=== PATIENT | male | born 1945 | race Caucasian/White ===

== ENCOUNTER 2017-02-17 16:43 | Inpatient (IN) ==
--- NOTE | 2017-02-17 18:01 | Diag Imaging Result Doc PS360 ---
EXAM: LOWER LEG-RIGHT HISTORY: fall TECHNIQUE: Right lower leg four views COMMENT: There is a somewhat comminuted fracture of the proximal fibular shaft with lateral and anterior displacement of the distal fragment, also there is a spiral fracture of the distal tibia the distal fragment of which is displaced slightly laterally. IMPRESSION: Fractures of the tibia and fibula as described. Electronically signed by Hi Sage 02/17/2017 5:58 PM
[2017-02-17] MEDS ORDERED: MORPHINE IM ONE (18:11)
[2017-02-17] MEDS ORDERED: ZOFRAN IM ONE (18:11)
[2017-02-17] MEDS ORDERED: ZOFRAN IV ONE (18:27)
[2017-02-17] MEDS ORDERED: MORPHINE IV ONE ×2 (18:27→19:35)
--- NOTE | 2017-02-17 18:42 | Diag Imaging Result Doc PS360 ---
EXAM: CHEST-PORTABLE HISTORY: preop TECHNIQUE: AP portable upright at 1830 COMMENT: There are sternotomy wires. The heart size and pulmonary vascularity are within normal limits. There are no previous studies. There is apparent atelectasis versus fibrosis in the left costophrenic sulcus. IMPRESSION: Questionable left lower lobe atelectasis. Electronically signed by Hi Sage 02/17/2017 6:39 PM
[2017-02-17 19:30] LABS: MANUAL DIFF NEEDED? NO
[2017-02-17 19:33] LABS: BASO% 0.2 % (0.0-0.8); EOS# 0.18 X1000 (0.0-0.7); EOS% 1.8 % (0.0-10.0); HEMATOCRIT 38.2 % (42.0-52.0); HEMOGLOBIN 13.1 g/dL (14.0-18.0); IMM GRAN# 0.02 X1000 (0.0-0.04); IMM GRAN% 0.2 % (0.0-0.5); LYMPH# 1.63 X1000 (1.2-3.4); LYMPH% 16.1 % (20.5-51.1); MCH 29.8 PG (27-31); MCHC 34.3 g/dL (33-37); MONO% 8.9 % (1.7-9.3); MPV 11.4 FL (7.4-10.4); NEUT% 72.8 % (42.2-75.2); PLT 178 X1000 (130-400); RBC 4.39 XMIL (4.7-6.1)
[2017-02-17 19:42] LABS: INR 0.99; PROTIME 10.4 Seconds (9.2-11.7); PTT 23.2 Seconds (22.0-36.0)
[2017-02-17] MEDS ORDERED: DILAUDID IV ONE (19:53)
[2017-02-17 20:20] LABS: AGAP 15; ALBUMIN 4.8 g/dL (3.5-5.0); ALKALINE PHOSPHATASE 71 U/L (32-122); BUN 23 mg/dL (8-22); CALCIUM 9.5 mg/dL (8.8-10.2); CHLORIDE 98 mmol/L (98-107); COSMO 284; GOT 20 U/L (10-34); GPT 15 U/L (10-44); POTASSIUM 4.6 mmol/L (3.5-5.1); SODIUM 139 mmol/L (136-145); TCO2 26 mmol/L (25-35); TOTAL PROTEIN 7.1 g/dL (6.3-8.3)
[2017-02-17 20:25] LABS: URINE CULTURE NEEDED? NO; URINE MICRO REVIEW NEEDED? NO; URINE SOURCE CLEAN CATCH
[2017-02-17 20:31] LABS: BILIRUBIN URINE NEGATIVE (NEGATIVE); BLOOD URINE NEGATIVE (NEGATIVE); COLOR YELLOW; GLUCOSE URINE NEGATIVE (NEGATIVE); LEUKOCYTES URINE NEGATIVE (NEGATIVE); NITRITE URINE NEGATIVE (NEGATIVE); PH URINE 5.5; PROTEIN URINE TRACE mg/dL (NEGATIVE); SP GRAVITY URINE 1.017; TURBIDITY URINE CLEAR (CLEAR); UROBILINOGEN URINE NORMAL (NORMAL)
[2017-02-17 20:33] LABS: UR EPITHELIAL CELLS <10 /HPF (<10); URINE BACTERIA NEGATIVE /HPF; URINE RBC <10 /HPF (<10); URINE WBC <10 /HPF (<10)
--- NOTE | 2017-02-17 21:21 | PROVIDER DOCUMENTATION ---
This chart was entered by Ashley Perez Scribe, acting as scribe for Kraig Portillo PA. HPI-Musculoskeletal Pain/Inj - GENERAL Chief Complaint: Extremity Injury Stated Complaint: FALL Time Seen by Provider: 02/17/17 17:51 Source: patient - HX OF PRESENT ILLNESS-MUSKULOSKELTAL Nature of Presenting Problem: 71 yo M presents to the ER with complaint of fall 2ft off of a ladder, complaining of R ankle pain. Denies hitting his head of any LOC. He denies heck pain, back pain, hip pain, chest pain. Quality of Pain: reports: aching Severity in ED: moderate Onset/Duration: just prior to arrival Timing: still present Modifying Factors: improves with: movement Any recent injury?: Yes Locality of Occurance: Home Similar Symptoms Previously?: No Recently seen or treated by another doctor?: No - FALL INJURY Location of Pain/Injury: reports: lower extremity (R ankle) Pain Radiation: reports: no radiation Loss of Consciousness: no loss of consciousness Review of Systems - Adult - REVIEW OF SYSTEMS - ADULT Constitutional: denies: chills, fever Eyes: reports: no symptoms reported Ears, Nose, Mouth & Throat: reports: no symptoms reported Cardiovascular: denies: chest pain, palpitations Respiratory: denies: cough, shortness of breath Gastrointestinal: reports: no symptoms reported Genitourinary: reports: no symptoms reported Musculoskeletal: reports: joint pain, joint swelling Integumentary: reports: no symptoms reported Neurological: reports: no symptoms reported Psychiatric: reports: no symptoms reported Endocrine: reports: no symptoms reported Hematologic/Lymphatic: reports: no symptoms reported Allergic/Immunologic: reports: no symptoms reported All Other Systems: Reviewed and Negative Past History - Adult - PAST MEDICAL HISTORY-ADULT Review of Records: reports: Nursing Assessment Review, Medications Reviewed Cardiovascular: reports: CAD, HTN Diabetes Type: Type 2 - PRIOR SURGERIES/PROCEDURES Surgical/Procedure History: reports: appendectomy, cholecystectomy - IMMUNIZATION STATUS Childhood Immunizations: See Nurse Assessment Flu Vaccine: See Nurse Assessment - SOCIAL HISTORY Smoking: denies Alcohol Use Frequency: never Physical Exam-Injury Related - Physical Exam-Injury Related Initial Vital Signs Reviewed: Yes General Appearance: alert, no apparent distress Eyes: PERRL/EOMI, pink conjunctivae Head, Ears, Nose, Mouth & Throat: normocephalic/atraumatic, normal ENT inspection Neck: supple, normal inspection Respiratory: no respiratory distress, no accessory muscle use Cardiovascular: normal peripheral pulses, regular rate, rhythm Peripheral Pulses: dorsalis-pedis (R): 2+, dorsalis-pedis (L): 2+ Back Exam: no CVA tenderness, no vertebral tenderness Extremity: normal range of motion, tenderness (tenderness/deformity to right distal tibia. good pedal pulses and sensation. no laceration) Integumentary: normal color, warm/dry Neurologic: grossly normal, no motor/sensory deficits Psych/Mental Status: normal mood/affect, normal thought content, normal thought process, oriented x 3 Progress - PLAN OF CARE/RESULTS Progress/Plan/Lab Results: Vital Signs - 8 hr 02/17/17 16:59 02/17/17 21:04 Temperature 98.6 F Pulse Rate 66 97 H Respiratory Rate 18 20 Blood Pressure 133/54 208/94 O2 Sat by Pulse Oximetry 99 95 Laboratory Results - last 24 hr 02/17/17 02/17/17 02/17/17 18:40 18:40 18:40 WBC 10.10 RBC 4.39 L Hgb 13.1 L Hct 38.2 L MCV 87.0 MCH 29.8 MCHC 34.3 RDW Std Deviation 12.4 Plt Count 178 MPV 11.4 H Immature Gran % (Auto) 0.2 Neut % (Auto) 72.8 Lymph % (Auto) 16.1 L [place] % (Auto) 8.9 Eos % (Auto) 1.8 Baso % (Auto) 0.2 Immature Gran # (Auto) 0.02 Neut # (Auto) 7.35 H Lymph # (Auto) 1.63 [place] # (Auto) 0.90 H Eos # (Auto) 0.18 Baso # (Auto) 0.02 PT 10.4 INR 0.99 PTT (Actin FS) 23.2 Sodium 139 Potassium 4.6 Chloride 98 Carbon Dioxide 26 Anion Gap 15 BUN 23 H Creatinine 1.1 Estimated GFR/1.73 m2 > 60 BUN/Creatinine Ratio 21 Glucose 157 H Calculated Osmolality 284 Calcium 9.5 Total Bilirubin 0.50 AST 20 ALT 15 Alkaline Phosphatase 71 Total Protein 7.1 Albumin 4.8 Globulin 2.3 Albumin/Globulin Ratio 2.1 Urine Source Urine Color Urine Turbidity Urine pH Ur Specific [place] Urine Protein Ur Glucose (Stick) Ur Ketones (Stick) Urine Blood Urine Nitrite Urine Bilirubin Urobilinogen Dipstick Urine Leukocytes Urine WBC (Auto) Urine RBC (Auto) U Epithel Cells (Auto) Urine Bacteria (Auto) 02/17/17 20:12 WBC RBC Hgb Hct MCV MCH MCHC RDW Std Deviation Plt Count MPV Immature Gran % (Auto) Neut % (Auto) Lymph % (Auto) [place] % (Auto) Eos % (Auto) Baso % (Auto) Immature Gran # (Auto) Neut # (Auto) Lymph # (Auto) [place] # (Auto) Eos # (Auto) Baso # (Auto) PT INR PTT (Actin FS) Sodium Potassium Chloride Carbon Dioxide Anion Gap BUN Creatinine Estimated GFR/1.73 m2 BUN/Creatinine Ratio Glucose Calculated Osmolality Calcium Total Bilirubin AST ALT Alkaline Phosphatase Total Protein Albumin Globulin Albumin/Globulin Ratio Urine Source CLEAN CATCH Urine Color YELLOW Urine Turbidity CLEAR Urine pH 5.5 Ur Specific [place] 1.017 Urine Protein TRACE A Ur Glucose (Stick) NEGATIVE Ur Ketones (Stick) NEGATIVE Urine Blood NEGATIVE Urine Nitrite NEGATIVE Urine Bilirubin NEGATIVE Urobilinogen Dipstick NORMAL Urine Leukocytes NEGATIVE Urine WBC (Auto) <10 Urine RBC (Auto) <10 U Epithel Cells (Auto) <10 Urine Bacteria (Auto) NEGATIVE Orders Category Date Time Status OCL Splint DIRECTED Care 02/17/17 18:39 Active Saline Loc NOW Care 02/17/17 18:25 Active LOWER LEG-RIGHT [RAD] Stat Exams 02/17/17 17:21 Completed cxr [CHEST-PORTABLE] [RAD] Stat Exams 02/17/17 18:25 Completed CBC WITH ELECTRONIC DIFF [HEME] Stat Lab 02/17/17 18:40 Completed COMPREHENSIVE METABOLIC PANEL [CHEM] Stat Lab 02/17/17 18:40 Completed PROTIME WITH INR [COAG] Stat Lab 02/17/17 18:40 Completed PTT [COAG] Stat Lab 02/17/17 18:40 Completed UA NIMS W/REFLEX CULT [URINALYSIS] Stat Lab 02/17/17 20:12 Completed Hydromorphone [Dilaudid] Med 02/17/17 19:53 Discontinued 1 mg IV NOW ONE Morphine Med 02/17/17 18:11 Discontinued 4 mg IM NOW ONE Morphine Med 02/17/17 18:27 Discontinued 4 mg IV NOW ONE Morphine Med 02/17/17 19:35 Discontinued 4 mg IV NOW ONE Ondansetron [Zofran] Med 02/17/17 18:11 Discontinued 4 mg IM NOW ONE Ondansetron [Zofran] Med 02/17/17 18:27 Discontinued 4 mg IV NOW ONE EKG [EKG] Stat Ther 02/17/17 18:25 Ordered Transfer/Admit Order [TRANSFER] Routine Transfer 02/17/17 20:23 Ordered Case and plan of care discussed with Dr. Jensen. Result Diagrams: 02/17/17 18:40 02/17/17 18:40 - XRAY 1 XRAY: Right XRAY Study: Tibia/Fibula Impression: Abnormal (Somewhat comminuted fx of proximal fibular shaft with lateral and anterior displacement of distal fragment, also spiral fx of dista tibia the distal fragment of which is displaced slightly laterally. per radiologist) - CONSULTS/PCP/HOSPITALIST Notification #1 *Consult/PCP/Hospitalist*: estefany Leonard Time Discussed: 18:24 (surgery tomorrow. ) Consult Disposition: Admit #2 Consult: Dr. Boucher Time Discussed: 18:45 Consult Disposition: Will see in ED, Admit Procedures - SPLINTING Right Lower Extremity Pre-Procedure Neurovascular Exam: Intact Splint Application (Hand-Made): Long, Posterior OCL Applied By: ED Nurse Assisted By: ward aide Post Procedure Neurovascular Exam: Intact Departure - Departure Date of Disposition Decision: 02/17/17 Time of Disposition Decision: 20:11 DIAGNOSIS: Tibia fracture Qualifiers: Encounter type: initial encounter Tibia location: distal Fracture type: closed Fracture morphology: other fracture Laterality: right Qualified Code(s): S82.391A - Other fracture of lower end of right tibia, initial encounter for closed fracture Fibula fracture Qualifiers: Encounter type: initial encounter Fibula location: proximal Fracture type: closed Fracture morphology: unspecified fracture morphology Laterality: right Qualified Code(s): S82.831A - Other fracture of upper and lower end of right fibula, initial encounter for closed fracture Fall Qualifiers: Encounter type: initial encounter Qualified Code(s): W19.XXXA - Unspecified fall, initial encounter Disposition: ADMITTED INPATIENT 09 Certified Medical Emergency: Emergent Condition: Stable Referrals and Follow-Ups: Vanda Gupta MD [Primary Care Provider] - - Critical Care Note This patient required my direct & personal management of CC.: No Attestation - Physician/ TISH Attestation Patient care was provided by Advanced Practice Provider:: Yes Advanced Practice Provider:: Kraig Portillo Advanced Practice Provider documentation review:: The Mid-level provider documentation, treatment plan and medical decision making was reviewed by the physician who agrees with all treatment and medical decision making by the MLP. This chart was documented by the indicated scribe, (Ashley Perez Scribe) and accurately reflects the services I performed and decisions made by me, Kraig Portillo, PA, as attested by the provider's signature.
[2017-02-17] MEDS ORDERED: ZOFRAN IV PRN (22:03)
[2017-02-17] MEDS ORDERED: TYLENOL PO PRN (22:03)
[2017-02-17] MEDS ORDERED: NS 1,000 ML IV SCH (22:03)
[2017-02-18] MEDS: DILAUDID IV PRN ×4 (00:23→16:30)
[2017-02-18 06:25] LABS: MANUAL DIFF NEEDED? NO
[2017-02-18 06:29] LABS: BASO% 0.3 % (0.0-0.8); EOS# 0.22 X1000 (0.0-0.7); HEMATOCRIT 35.1 % (42.0-52.0); HEMOGLOBIN 11.8 g/dL (14.0-18.0); LYMPH# 1.63 X1000 (1.2-3.4); LYMPH% 22.2 % (20.5-51.1); MCH 29.4 PG (27-31); MCHC 33.6 g/dL (33-37); MCV 87.5 FL (81-99); MONO# 0.84 X1000 (0.11-0.59); MONO% 11.4 % (1.7-9.3); MPV 11.2 FL (7.4-10.4); NEUT% 63.1 % (42.2-75.2); PLT 170 X1000 (130-400); RBC 4.01 XMIL (4.7-6.1)
[2017-02-18] MEDS: HUMALOG SUBQ SCH ×4 (06:34→22:06)
[2017-02-18 06:46] LABS: AGAP 11; BUN 21 mg/dL (8-22); CALCIUM 8.9 mg/dL (8.8-10.2); CHLORIDE 100 mmol/L (98-107); COSMO 287; POTASSIUM 3.9 mmol/L (3.5-5.1); SODIUM 139 mmol/L (136-145); TCO2 28 mmol/L (25-35)
[2017-02-18] MEDS ORDERED: PRILOSEC PO SCH (07:00)
--- NOTE | 2017-02-18 07:29 | EKG Report ---
Test Performed on : 02/17/2017 7:31:47 PM Test Reason : preop Blood Pressure : / mmHG Vent. Rate : 060 BPM Atrial Rate : 060 BPM P-R Int : 150 ms QRS Dur : 080 ms QT Int : 438 ms P-R-T Axes : 036 -13 012 degrees QTc Int : 438 ms Normal sinus rhythm. Normal ECG No previous ECGs available Unconfirmed Result
[2017-02-18] MEDS ORDERED: CRESTOR PO SCH (09:00)
[2017-02-18] MEDS ORDERED: LOTREL 5/20 MG PO SCH (09:00)
[2017-02-18] MEDS: ASPIRIN EC PO SCH (09:32)
[2017-02-18] MEDS: FLOMAX PO SCH (09:32)
[2017-02-18] MEDS: ZEBETA PO SCH (09:55)
[2017-02-18] MEDS ORDERED: KEFZOL 2 GM/D5W 2 GM/50 ML IVPB IV ONE (10:34)
[2017-02-18] MEDS ORDERED: NEOSPORIN G.U. IRRIGANT ONE (10:51)
[2017-02-18] MEDS ORDERED: FENTANYL ONE (11:17)
[2017-02-18] MEDS ORDERED: DIPRIVAN 1% ONE (11:17)
[2017-02-18] MEDS ORDERED: XYLOCAINE-MPF 2% ONE (11:19)
[2017-02-18] MEDS ORDERED: KEFZOL 2 GM/D5W 2 GM/50 ML IVPB ONE (11:24)
--- NOTE | 2017-02-18 11:45 | HISTORY AND PHYSICAL ---
DATE AND TIME: February 17, 2017 at 8 p.m. PRIMARY CARE PROVIDER: Dr. Juice Gupta. CHIEF COMPLAINT: Fall and right lower extremity pain and deformity. HISTORY OF PRESENT ILLNESS: Mr. Klein is a 71-year-old male who presented to the ER [facility] at approximately 1640 with complaints of a fall from a ladder and now having right lower extremity pain and deformity. The patient states that he was up approximately on the 2nd to 3rd step of the ladder and lost his balance, fell back, and landed on his right leg. He immediately felt pain and had deformity. He states that he did not hit his head, did not have any loss of consciousness, and he denies any other injuries. He was able to actually crawl around his house to be able to get his 's attention enough to help him get up and come to the emergency department. At this time he denies any other pain except for the pain in his right lower extremity. He does have good pulses, sensation, and capillary refill in his right foot distal to the injury. Upon evaluation in the ER, the patient was found to have a comminuted fracture of the proximal fibular shaft with a lateral and anterior displacement of the distal fragment. Also there is a spiral fracture of the distal tibia and distal fragment which is displaced slightly laterally. Dr. Mcgee with orthopedic surgery was consulted. He instructed the ER physician 's bricklayer's assistant to place a long posterior splint to the right leg with stirrups. He wanted the splint to extend up into the proximal thigh. Upon my evaluation in the ER, the patient's foot was actually laterally rotated more than it was previously according to the ER physician's bricklayer's assistant. I did contact Dr. Mcgee and confirmed that he still wanted the same plan as previously before and to make sure that he was okay with me positioning the patient's foot back into anatomical position. Dr. Mcgee stated that this was fine. At this time the patient will be admitted to the surgical floor for further treatment and evaluation of his tibia/fibula fracture. REVIEW OF SYSTEMS: A 12 point review of systems was conducted with the patient and all were negative except for pertinent positives mentioned in the above HPI. He denies any headache, dizziness, lightheadedness, chest pain, shortness of breath, cough, abdominal pain, nausea, vomiting, diarrhea, or constipation. He denies any dysuria or urinary frequency. Other than the reported pain in his right lower extremity, he denies any pain, numbness, tingling, or swelling in extremities. He also denies any fever, body aches, or chills. PAST MEDICAL HISTORY: 1. Coronary artery disease, status post coronary artery bypass graft. 2. Hypertension. 3. Hyperlipidemia. 4. Diabetes mellitus type 2. 5. The patient reports that he does have a history of having some tachycardia and has been placed on a beta erin for this and has not recently had any symptoms. PAST SURGICAL HISTORY: 1. Appendectomy. 2. Cholecystectomy. 3. Coronary artery bypass graft sixteen years ago. SOCIAL HISTORY: The patient states he is a former smoker, though has not smoked in approximately 40 years. He reports that he smoked 2 packs a day for 15 years. He denies any alcohol or illicit drug use. He lives at home with his , who coming up in a few months will have been for 56 years. FAMILY HISTORY: Positive for Alzheimer disease and heart disease in his mother. In his father there is a history of heart disease with 2 coronary artery bypass grafts. ALLERGIES: Patient reports allergies to hydrocodone, stating it causes him to have a jittery feeling. HOME MEDICATIONS: Xanax 0.5 mg p.o. b.i.d., Lotrel 10/40 mg capsule 1 p.o. daily, aspirin 81 mg p.o. daily, Zebeta 2.5 mg p.o. daily, vitamin D3 2000 units p.o. daily, Nexium 40 mg p.o. daily, Glucophage 1000 mg p.o. b.i.d., multivitamin 1 p.o. daily, Crestor 20 mg p.o. daily, Flomax 0.4 mg p.o. daily. DIAGNOSTIC DATA/LABORATORY RESULTS: White blood cell count 10.1, hemoglobin 13.1, hematocrit 38.2, platelet count 178,000. PT 10.4, INR 0.99. PTT is 23.2. Sodium 139, potassium 4.6, chloride 98, bicarb 26, BUN 23, creatinine 1.1. GFR is greater than 60. Glucose 157, calcium 9.5. Liver function tests are within normal limits. Urinalysis was obtained via clean catch. It was positive for trace protein. Otherwise within normal limits. EKG shows normal sinus rhythm at a rate of 60 with a QTc of 438. Portable chest x-ray showed a questionable left lower lobe atelectasis. The radiologist noted there is an apparent atelectasis versus fibrosis in the left costophrenic sulcus. There were no other abnormalities noted. Right lower leg x-ray showed fractures of the tibia and fibula. There is a comminuted fracture of the proximal fibular shaft with lateral and anterior displacement of the distal fragment. Also there is a spiral fracture of the distal tibia, the distal fragment which is displaced slightly laterally. PHYSICAL EXAMINATION: VITAL SIGNS: Temperature 98.6 degrees, heart rate is 60, respirations 16, blood pressure is 146/54, oxygen saturation is 100% room air. GENERAL: Mr. Klein is a pleasant, 71-year-old male who is resting in the ER stretcher. Though he is reporting some pain in his right lower extremity, no other acute distress noted. He was awake, alert, and able to answer all questions appropriately. HEENT: Head is atraumatic, normocephalic. Pupils are equal, round, reactive to light, were 3 mm bilaterally and brisk. Oral mucosa is moist. The patient did have a slightly black discoloration noted to his tongue but reported that he does dip occasionally from time to time. NECK: Supple. Trachea midline. CARDIOVASCULAR: Patient has normal S1, S2. No murmurs, gallops, or rubs appreciated. Regular rate and rhythm. PULMONARY: Patient has symmetrical chest expansion bilaterally. Lung sounds are clear to auscultation bilateral full mccord. ABDOMEN: Soft, nontender, nondistended. Bowel sounds were present in all 4 quadrants. EXTREMITIES: The patient does have deformity noted to the right lower extremity. He has a lateral rotation of his foot. There is some swelling noted to this extremity as well, though the patient does have good +3 pedal pulses noted, with good sensation and good capillary refill less than 3. All other extremities are within normal limits. INTEGUMENTARY: The patient's skin is pink, warm, dry, and intact. No lesions or sores noted. NEUROLOGICAL: Patient is alert and oriented x4. Cranial nerves 2 through 12 are grossly intact. ASSESSMENT AND PLAN: 1. Right tibia/fibula fracture. For this the patient has been splinted according to Dr. Mcgee's instructions. We will control his pain with Dilaudid 1 mg q.3 hours as well as nausea medicine, and Zofran p.r.n. He will be placed on a diabetic diet until midnight and will be NPO. At this time, until surgery he will be on strict bed rest. We will do strict intake and output. We will repeat a CBC, BMP in the morning, as well as we have placed order for type and screen and will await evaluation and further recommendations from Dr. Mcgee with orthopedic surgery. 2. Diabetes mellitus type 2. While the patient is inpatient to have better control of his fingerstick blood sugars, we will place him on a low-dose sliding scale lispro insulin. We will do fingerstick blood sugars a.c. and at bedtime, and continue to follow. 3. History of coronary artery disease status post coronary artery bypass graft. Given the patient's history we will go ahead and continue him on his aspirin 81 mg p.o. He will also be placed on telemetry and we will monitor closely. 4. Hypertension. We will continue his blood pressure medicines of Lotrel and Zebeta. 5. Hyperlipidemia. We will continue his Crestor. 6. Gastroesophageal reflux disease. We will continue his Nexium. 7. We have placed no deep vein thrombosis prophylaxis at this time given that the patient does have a fracture to his lower extremities and TOY hose and SCDs will not be able to be placed. We can place them on the unaffected extremity, though we will hold any kind of anticoagulation prophylactically due to the patient is going to surgery in the morning. 8. The patient placed on the medical floor with telemetry. He will have vital signs q.6 hours. Further orders and recommendations pending hospital course, diagnostic studies, and physician evaluation. Dictated by JOSSUE Tillman for Nadeen Yuen MD Seen and examined pt; discussed plan of care with RESERVOIR ENGINEERING MANAGER cc: MD Daniel Patel MD [facility] HOSPITALNilson
[2017-02-18] MEDS ORDERED: ROBINUL ONE (12:50)
[2017-02-18] MEDS ORDERED: ZOFRAN ONE (12:51)
[2017-02-18] MEDS ORDERED: NS 1,000 ML ONE (13:27)
[2017-02-18] MEDS ORDERED: MORPHINE IV PRN (13:35)
[2017-02-18] MEDS ORDERED: ZOFRAN IV PRN (13:36)
[2017-02-18] MEDS ORDERED: DEMEROL ONE ×2 (13:49→14:28)
[2017-02-18] MEDS: NS 1,000 ML IV SCH (14:55)
--- NOTE | 2017-02-18 16:46 | CONSULTATION ---
DATE OF CONSULTATION: 02/18/2017 CHIEF COMPLAINT: Right leg pain. HISTORY OF PRESENT ILLNESS: This is a 71-year-old male, who states he fell off a 2 foot ladder yesterday, and he presented to the emergency department. He complains of right leg pain. He has been unable to ambulate. He denies hitting his head or any loss of consciousness. He presented to the emergency department where findings revealed comminuted fracture of the proximal fibular shaft and a displaced spiral fracture of the distal tibia. He was admitted for further evaluation. PAST MEDICAL HISTORY/PAST SURGICAL HISTORY, MEDICINES AND ALLERGIES: See admission history and physical. REVIEW OF SYSTEMS: Ten point review of systems were reviewed with the patient and was otherwise negative, other than what was stated in the HPI above. PHYSICAL EXAM: General: Mr. Klein is a well developed, well nourished male. He is alert, oriented and cooperative with the exam. Musculoskeletal: There is some deformity of his right lower extremity which is currently in the splint. The splint is intact. He has 2+ pedal pulses bilaterally and he discerned soft touch to the affected extremity. His right leg is neurovascularly intact. IMPRESSION: Right displaced distal tibia fracture with a comminuted fibular fracture. PLAN: Dr. Mcgee discussed with the patient treatment options and he discussed that the patient should proceed with a right tibial nail. Dr. Mcgee discussed with the patient the risks, benefits, and alternatives of surgery, including but not limited to risk of bleeding, nerve damage, infection, risks from anesthesia, hardware failure, malunion, nonunion up to and including loss of limb and life and other imponderables. All questions were answered. No guarantees were given. The patient voiced their understanding and requests we proceed as planned. We will schedule surgery for today for a right tibial nail. Dictated by CYNTHIA Phelps for Pepe Mcgee MD cc: CYNTHIA Phelps MD Jagan Reddy, MD
[2017-02-18] MEDS: KEFZOL 2 GM/D5W 2 GM/50 ML IVPB IV SCH (19:20)
[2017-02-18] MEDS: PERIDEX MT SCH ×2 (19:53→21:00)
[2017-02-18] MEDS: PERCOCET-10 PO PRN ×2 (19:53→23:46)
[2017-02-18] MEDS: CRESTOR PO SCH (21:38)
[2017-02-18] MEDS: LOTREL 5/20 MG PO SCH (21:39)
[2017-02-18] MEDS: PRILOSEC PO SCH (21:39)
--- NOTE | 2017-02-18 21:52 | OPERATIVE NOTE ---
PROCEDURE DATE: 02/17/2017 PREOPERATIVE DIAGNOSIS: Right distal tibia and proximal fibula fracture. POSTOP DIAGNOSIS: Right distal tibia and proximal fibula fracture. PROCEDURE: Was closed reduction intramedullary nailing of right tibia with a 345 mm Synthes 10 mm in diameter locking tibial nail with 2 bicortical screws proximally and 2 bicortical screws distally 5 mm in proper measured lengths. ANESTHESIA: General. SURGEON: Pepe Mcgee MD. EHS MANAGER: Aleksandra Bang PA-C who was present throughout the case and was critical in reducing the fracture, assisting with reaming, implantation of the device and implantation of the screws as well as wound closure. SECOND EHS MANAGER: Jim Calderon RN. COMPLICATIONS: None. BLOOD LOSS: Minimal. TOURNIQUET TIME: Approximately 15 minutes. DESCRIPTION PROCEDURE: Patient brought to operative suite and placed in supine position. After successful administration of general anesthesia, a well-padded tourniquet was placed on right proximal thigh. The right lower extremity was prepped and draped in usual sterile fashion. Leg was exsanguinated. Tourniquet insufflated to 350 torr. A longitudinal incision was made overlying the medial border of the patellar tendon, dissected sharply through the skin and patella tenon down to the edge of the patellar tendon which was incised and then a guidepin was placed in center of the tibial canal on AP and lateral images. Once verified to be in good position the fracture was attempted to reduced manually, was unsuccessful. Therefore stab incisions were made and a ball-tip reduction clamp was placed across the fracture distally then a ball-tipped guide pin was placed across fracture site and the canal was serially reamed to 11.5 mm to accept a 10 nail. Proper length nail 340 mm was measured, the nail was then driven into place and using the proximal guide through stab incisions the proximal locking screws were placed and then using the perfect circles technique through stab incision the distal locking screws were drilled in place. The clamp was removed. The x-rays again showed excellent reduction of the fracture. Prior to reaming, the tourniquet was deflated. Again x-rays showed excellent reduction the fracture and placement of the nail and screws. The wounds were copiously irrigated. The tendon fascia was closed with a running 0 Vicryl suture. The paratenon was closed running 0 Vicryl suture. Skin edge approximated with 2-0 Vicryl. Skin was closed with interrupted nylon and a sterile dressing was applied. The patient tolerated the procedure well without complication. At the end the procedure, all counts correct x2. The patient was transferred to the recovery room in stable condition. cc: MD Daniel Antony MD
--- NOTE | 2017-02-18 23:26 | PROGRESS NOTE ---
DATE: 02/18/2017 SUBJECTIVE: A 71-year-old white gentleman, admitted to the hospital yesterday after he fell out of the ladder while he was cleaning the house. Sustained injury to the right leg. He had a compound fracture of the mid right leg with a fibular fracture. Patient was seen by Dr. Mcgee. REVIEW OF SYSTEMS: HEENT: No headache. No dizziness. No earache. No sore throat. No vision problem. Neck: No goiter. No lymphadenopathy. No bruit. Cardiopulmonary: No chest pain, shortness of breath, PND, orthopnea. GI: No nausea, vomiting, abdominal pain. Extremities: Pain in the right leg. Neurologic: No focal symptoms or weakness. PAST MEDICAL HISTORY: Reviewed. PAST SURGICAL HISTORY: Reviewed. MEDICINES: Reviewed. PHYSICAL EXAMINATION: Vitals: Pulse is 62, blood pressure is 170/76, pulse oximetry 94% on room air. Input and output even. HEENT: Within normal limits. Neck: Supple. No lymphadenopathy. Chest: Clear to auscultation. Heart: Sounds are regular. Abdomen: Belly is soft, nontender. Good bowel sounds. Right leg has a bandage applied. Neurologic: No obvious neurological deficits. INVESTIGATIONS: CBC: White cell count 7.2, hematocrit 35, platelets 170,000. SMA7: sodium 139, potassium 3.9, chloride 100, BUN 21, creatinine 1. Glucose 200. Calcium 8.9. Urinalysis is clear. Chest x-ray: Questionable left lower lobe atelectasis. Lower extremity x-ray on the right side: Fracture of the tibia and fibula, comminuted fracture. Fracture noted in the right upper fibular and mid lower 1/3 fibular fracture. EKG: Normal sinus, nothing acute. QT intervals are normal. ASSESSMENT AND PLAN: 1. Right leg fracture at upper fibula and lower 1/3 of the tibia. Consult with Dr. Mcgee. 2. Hypertension on Lotrel. 3. Nothing per oral. Continue IV hydration. 4. Chronic anxiety. On Xanax. 5. Acid reflux disease. On Prilosec. 6. Hyperlipidemia. On Crestor. 7. Benign prostatic hypertrophy, on Flomax. 8. Pain control with morphine. Patient is going for surgery this afternoon. LEVEL OF DOCUMENTATION: 35 minutes. cc: Daniel Gupta MD
[2017-02-18] MEDS: XANAX PO PRN (23:46)
[2017-02-19] MEDS: DILAUDID IV PRN (01:38)
[2017-02-19] MEDS: KEFZOL 2 GM/D5W 2 GM/50 ML IVPB IV SCH (04:00)
[2017-02-19] MEDS: PERIDEX MT SCH ×3 (05:49→21:27)
[2017-02-19] MEDS: NS 1,000 ML IV SCH ×2 (05:50→16:45)
[2017-02-19] MEDS: HUMALOG SUBQ SCH ×4 (06:50→21:27)
[2017-02-19] MEDS: FLOMAX PO SCH (09:03)
[2017-02-19] MEDS: ZEBETA PO SCH (09:05)
[2017-02-19] MEDS: PERCOCET-10 PO PRN ×3 (09:06→21:26)
[2017-02-19] MEDS: ASPIRIN EC PO SCH (09:06)
--- NOTE | 2017-02-19 11:39 | PROGRESS NOTE ---
DATE: 02/19/2017 SUBJECTIVE: Patient is doing very well. I appreciate Dr. Mcgee's input and his surgical notes. Patient has a metallic sandeep placed on the right fibula. Patient is doing very well. REVIEW OF SYSTEMS: None reported. EXAMINATION: Vital Signs: There is a low-grade fever at 99.9, pulse is 60, blood pressure is 139/50. Room air pulse oximetry of 93%. HEENT Examination: Within normal limits. Neck: Supple. Chest: Clear. Heart: Heart sounds are regular. Abdomen: Belly is soft, nontender. Good bowel sounds. Genitourinary: No Valdez was seen. Neurological: No obvious neurological deficits. ASSESSMENT AND PLAN: Status post right leg comminuted fracture, proximal fibula and distal tibia, status post metallic sandeep. Doing very well. Waiting for physical therapy today. Check the labs in the morning. DISPOSITION: Discussed with the patient about possible rehab versus outpatient home health. He will decide today. If he is stable, he will be discharged home either tomorrow or Friday, based on his progress and continue present medical therapy. LEVEL OF DOCUMENTATION: 25 minutes. cc: Daniel Gupta MD
[2017-02-19] MEDS: XANAX PO PRN ×2 (14:39→23:06)
[2017-02-19] MEDS ORDERED: GLUCOPHAGE PO SCH (17:45)
[2017-02-19] MEDS: CRESTOR PO SCH (21:26)
[2017-02-19] MEDS: GLUCOPHAGE PO SCH (21:26)
[2017-02-19] MEDS: LOTREL 5/20 MG PO SCH (21:26)
[2017-02-19] MEDS: PRILOSEC PO SCH (21:27)
--- NOTE | 2017-02-20 03:58 | PROGRESS NOTE ---
DATE: 02/19/2017 SUBJECTIVE: Pedro Luis Klein is a 71-year-old male who is postoperative day 1 from a right tibia closed reduction and intramedullary nailing. He complains of continued pain. He also states that he is not on his metformin that he normally takes at home. OBJECTIVE: He is a well-developed, well-nourished male. He is alert, oriented, and cooperative with the exam. His leg showed some bleeding through the bandage but his foot was neurovascularly intact. IMPRESSION: Status post right tibial nail. PLAN: We will change his dressing. We will place him on his metformin. He wishes to go to rehab. We will arrange for rehab for him hopefully tomorrow. cc: MD Daniel Antony MD
[2017-02-20 05:34] LABS: MANUAL DIFF NEEDED? NO
[2017-02-20 05:38] LABS: BASO% 0.4 % (0.0-0.8); EOS# 0.43 X1000 (0.0-0.7); EOS% 5.6 % (0.0-10.0); HEMATOCRIT 30.4 % (42.0-52.0); HEMOGLOBIN 10.1 g/dL (14.0-18.0); LYMPH# 1.63 X1000 (1.2-3.4); LYMPH% 21.3 % (20.5-51.1); MCH 29.8 PG (27-31); MCHC 33.2 g/dL (33-37); MCV 89.7 FL (81-99); MONO# 1.24 X1000 (0.11-0.59); MONO% 16.2 % (1.7-9.3); MPV 10.8 FL (7.4-10.4); NEUT% 56.5 % (42.2-75.2); PLT 154 X1000 (130-400); RBC 3.39 XMIL (4.7-6.1)
[2017-02-20] MEDS: PERCOCET-10 PO PRN ×2 (05:54→14:04)
[2017-02-20 06:11] LABS: AGAP 8; BUN 13 mg/dL (8-22); CALCIUM 9.2 mg/dL (8.8-10.2); CHLORIDE 100 mmol/L (98-107); COSMO 280; POTASSIUM 4.7 mmol/L (3.5-5.1); SODIUM 138 mmol/L (136-145); TCO2 30 mmol/L (25-35)
[2017-02-20] MEDS: HUMALOG SUBQ SCH ×4 (07:00→20:34)
[2017-02-20] MEDS: ASPIRIN EC PO SCH (09:24)
[2017-02-20] MEDS: GLUCOPHAGE PO SCH ×2 (09:24→20:35)
[2017-02-20] MEDS: FLOMAX PO SCH (09:25)
[2017-02-20] MEDS: ZEBETA PO SCH (09:25)
[2017-02-20] MEDS: PERIDEX MT SCH ×2 (09:29→20:35)
[2017-02-20] MEDS: XANAX PO PRN ×2 (09:33→22:01)
--- NOTE | 2017-02-20 13:35 | PROGRESS NOTE ---
DATE: 02/20/2017 SUBJECTIVE: Mr. Klein is a 71-year-old male who is postoperative day 2 from a right tibial closed reduction and intramedullary nailing. He has no new complaints today. He says that his pain is improving. OBJECTIVE: General: He is a well-developed, well-nourished male. He is alert, oriented, and cooperative with the exam. He is in no acute distress. Extremities: He has 2+ pedal pulses of his right leg pain. His wound is clean, dry, intact without sign of infection. His dressing is intact. IMPRESSION: Postoperative day 2 from a right tibia closed reduction and intramedullary nailing. PLAN: We will continue working with him with physical therapy. We will have him discharged to rehab hopefully tomorrow. Dictated by CYNTHIA Phelps for Pepe Mcgee MD cc: CYNTHIA Phelps MD Jagan Reddy, MD
--- NOTE | 2017-02-20 19:22 | PROGRESS NOTE ---
DATE: 02/20/2017 SUBJECTIVE: The patient is doing very well. Still in pain. Not able to walk as he should. REVIEW OF SYSTEMS: None reported. PHYSICAL EXAMINATION: Vital Signs: Afebrile. Hemodynamics are stable. Pulse oximetry 98% on room air. Input and output are even. HEENT Examination: Within normal limits. Neck: Supple. Chest: Clear to auscultation. Heart: Sounds are regular. Abdomen: Belly is soft, nontender. Good bowel sounds. No masses palpable. Neurologic: No neurological deficits. INVESTIGATIONS: CBC: White cell count 7.6, hematocrit 30, platelets 154,000. SMA 138, potassium 4.7, chloride 100, BUN 13, creatinine 1.0, glucose 175. Urinalysis is clear. ASSESSMENT AND PLAN: 1. Status post right leg comminuted fractures with intramedullary sandeep in the tibial bone. 2. High risk for deep vein thrombosis. No contraindications. We will start him on Xarelto. 3. Disposition. Discussed with the patient. He wants to go for rehabilitation. Consulted with the social work specialist for rehabilitation placement. If he is stable, he will be discharged in the morning when the bed is available. LEVEL OF DOCUMENTATION: 15 minutes. cc: Daniel Gupta MD
[2017-02-20] MEDS: PRILOSEC PO SCH (20:35)
[2017-02-20] MEDS: LOTREL 5/20 MG PO SCH ×2 (20:35→22:10)
[2017-02-20] MEDS: CRESTOR PO SCH (20:36)
[2017-02-20] MEDS ORDERED: PREVNAR 13 IM ONE (21:31)
--- NOTE | 2017-02-20 21:55 | DISCHARGE SUMMARY ---
ADMISSION DATE: 02/17/2017 DISCHARGE DATE: 02/21/2017 DISCHARGING DIAGNOSIS: Right leg committed fracture distal tibia and right proximal fibula. SECONDARY DIAGNOSES: 1. Allergic rhinitis. 2. Benign prostatic hypertrophy. 3. Right carotid stenosis. 4. 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 5. Type 2 diabetes. 6. Hypertension. 7. Hyperlipidemia. 8. Hearing loss. CONSULTS: Pepe Mcgee MD PROCEDURES: Intramedullary nailing of the right tibia. BRIEF HISTORY: Please see the H and P that was done by the hospitalist. In brief, he is a 71- year-old pleasant white male who was admitted to the hospital operative he fell at home from a ladder, sustaining injury to the right leg. He was diagnosed with comminuted fracture as above. On the same day, Dr. Mcgee did intramedullary nailing. Postoperative course was uneventful. At the request of the family, he is being transferred to the rehab for convalescence. LABORATORY: CBC, white cell count 7.6, hematocrit 30, platelets 154,000. SMA7 : Sodium 138, potassium 4.7, chloride 100, BUN 13, creatinine 1, glucose 175, calcium 9.2. Urinalysis is clear. IMAGING: Chest x-ray: Questionable atelectasis. DISCHARGE INSTRUCTIONS: The patient has been discharged to the rehab in a stable condition with the following instructions: Initiate pneumococcal vaccine 13 prior to the discharge. Multivitamin 1 tablet daily. Vitamin D3 2000 units daily, Flomax 0.4 daily, metformin 1000 p.o. b.i.d., Nexium 40 daily, Zebeta 2.5 daily, aspirin 81 mg daily, Xanax 0.5 p.o. b.i.d., Crestor 20 mg daily, Lotrel 10/40 mg daily, Xarelto 10 mg daily for DVT prophylaxis, Percocet 5 q.6 hours as needed for pain. Follow up in my office as well as Dr. Mcgee. cc: MD Pepe Rosales MD [facility]
[2017-02-21] MEDS: DILAUDID IV PRN (00:59)
[2017-02-21] MEDS ORDERED: XARELTO PO SCH (06:00)
[2017-02-21] MEDS: HUMALOG SUBQ SCH (06:30)
[2017-02-21] MEDS: ASPIRIN EC PO SCH (08:26)
[2017-02-21] MEDS: ZEBETA PO SCH (08:26)
[2017-02-21] MEDS: XANAX PO PRN (08:26)
[2017-02-21] MEDS: GLUCOPHAGE PO SCH (08:27)
[2017-02-21] MEDS: PERCOCET-10 PO PRN ×2 (08:27→13:51)
[2017-02-21] MEDS: FLOMAX PO SCH (08:27)
[2017-02-21] MEDS ORDERED: PNEUMOVAX 23 IM ONE (09:00)
[2017-02-21 11:34] VITALS: BP 141/50
== END 2017-02-21 14:21 ==
LOC: EDUNIT# 16:43 → ED 16:43 → SUATTDRO 20:38 → 4N 20:38
PROVIDERS: ADMIT Internal Medicine; ATTEND Internal Medicine